=== PATIENT | female | born 1975 | race Caucasian/White ===

== ENCOUNTER 2017-05-18 14:58 | Emergency (ER) | payer OTHER ==
[2017-05-18 17:34] VITALS: BP 153/102
--- NOTE | 2017-05-18 17:57 | UC ---
Respiratory Complaint HPI - HPI Summary HPI Summary: 42 YEAR OLD FEMALE PRESENTS WITH SEVERE COUGH, CHEST CONGESTION AND SORE THROAT. - History of Current Complaint Chief Complaint: UCRespiratory Stated Complaint: COUGH Time Seen by Provider: 05/18/17 17:54 Hx Obtained From: Patient Hx Last Menstrual Period: finished yesterday, on nuvaring Severity Initially: Moderate Severity Currently: Moderate Pain Scale Used: 0-10 Numeric - 5 - Allergies/Home Medications Allergies/Adverse Reactions: Allergies Allergy/AdvReac Type Severity Reaction Status Date / Time No Known Allergies Allergy Verified 05/18/17 17:34 Home Medications: Home Medications Dextromethorphan-Guaifenesin [Mucinex Dm Maximum Streng 60-1200 mg] 1 tab PO DAILY PRN 05/18/17 [History Confirmed 05/18/17] Ibuprofen TAB* [Advil TAB*] 200 mg PO Q6H PRN 05/18/17 [History Confirmed ] PMH/Surg Hx/FS Hx/Imm Hx - Surgical History Surgical History: Yes Surgery Procedure, Year, and Place: Clavicle surgery - Social History Alcohol Use: Weekly Substance Use Type: None Smoking Status (MU): Never Smoked Tobacco - Immunization History Most Recent Influenza Vaccination: none Review of Systems Constitutional: Negative Skin: Negative Eyes: Negative ENT: Negative, Nasal Discharge, Sinus Congestion, Sinus Pain/Tenderness Respiratory: Cough Cardiovascular: Negative Gastrointestinal: Negative Genitourinary: Negative Motor: Negative Neurovascular: Negative Musculoskeletal: Negative Neurological: Negative Psychological: Negative All Other Systems Reviewed And Are Negative: Yes Physical Exam Triage Information Reviewed: Yes Vital Signs: Initial Vital Signs Temp 37.1 C 05/18/17 17:29 Pulse 93 05/18/17 17:29 Resp 16 05/18/17 17:29 BP 153/102 05/18/17 17:29 Pulse Ox 99 05/18/17 17:29 Vital Signs Reviewed: Yes Eye Exam: Normal ENT: Positive: Pharyngeal erythema, Nasal congestion, Nasal drainage Dental Exam: Normal Neck exam: Normal Neck: Positive: 1 Respiratory: Positive: Rhonchi, Wheezing Cardiovascular Exam: Normal Abdominal Exam: Normal Musculoskeletal Exam: Normal Neurological Exam: Normal Psychological Exam: Normal Skin Exam: Normal UC Diagnostic Evaluation - Laboratory O2 Sat by Pulse Oximetry: 99 Respiratory Course/Dx - Differential Dx/Diagnosis Provider Diagnoses: COUGH. PHARYNGITIS Discharge - Discharge Plan Condition: Stable Disposition: HOME Prescriptions: Albuterol HFA INHALER* [Ventolin HFA Inhaler*] 1 puff INH Q6H PRN #1 mdi PRN Reason: Wheezing Azithromyxin CASSY (NF) [Z-Cassy (Zithromax) 250 mg tabs #6] 2 tab PO .TODAY, THEN 1 DAILY #6 tab Benzonatate [TESSALON 200 MG CAP] 200 mg PO TID PRN #30 cap PRN Reason: Cough guaiFENesin/CODIEN 100MG-10MG* [Robitussin AC 100Mg-10Mg*] 5 ml PO Q8H PRN #120 udc MDD 15 ML PRN Reason: Cough Patient Education Materials: Acute Cough (ED) Referrals: No Primary Care Phys,NOPCP [Primary Care Provider] -
== END 2017-05-18 18:29 | disposition home or self-care (01) ==
LOC: UCEAST 14:58
DX: J02.9 Acute pharyngitis, unspecified (principal); R05 Cough
CPT/HCPCS: 99212; G0463